=== PATIENT | male | born 1995 | race Two or more races ===

== ENCOUNTER 2025-05-14 22:52 | Emergency (ER) | payer OTHER ==
[~2025-05-14] VITALS: Ht 177.8 cm; Wt 81.6 kg
[2025-05-15] MEDS ORDERED: KETOROLAC TROMETHAMINE 60 MG VIAL IM STA (00:33)
[2025-05-15] MEDS ORDERED: KETOROLAC TROMETHAMINE 60 MG VIAL IM ONE (00:34)
[2025-05-15] MEDS ORDERED: FAMOTIDINE/PF 20 MG/2 ML VIAL IV PUSH STA (00:34)
[2025-05-15] MEDS ORDERED: DEXAMETHASONE SODIUM PHOSPHATE 4 MG/ML VIAL ONE (00:34)
[2025-05-15] MEDS ORDERED: DEXAMETHASONE SODIUM PHOSPHATE 4 MG/ML VIAL IM STA (00:34)
[2025-05-15] MEDS ORDERED: FAMOTIDINE/PF 20 MG/2 ML VIAL ONE (00:35)
[2025-05-15 01:41] LABS: BASO % 0.5 % (0.1-1.2); EOS # 0.10 (0.04-0.54); EOS % 1.3 % (0.7-7.0); LYMPH # 2.84 (1.18-3.74); LYMPH % 37.3 % (19.3-53.1); MEAN PLATELET VOLUME 10.60 fl (9.4-12.4); MONO # 0.62 (0.24-0.82); MONO % 8.1 % (4.7-12.5); NEUT # 4.00 (1.56-6.13); NEUT % 52.7 % (34.0-71.1); RED CELL DISTRIBUTION WIDTH 11.8 % (11.6-14.4)
[2025-05-15 01:52] LABS: BUN CREA RATIO 15.0 (7.0-25.0); CREATININE SERUM 1.2 mg/dL (0.70-1.30); GFR 72.09; GLUCOSE FASTING 112.0 mg/dL (65-100); OSMOLALITY SERUM 284.0 MOSM/KG (275-295)
[2025-05-15 02:36] LABS: URINE APPEARANCE Clear; URINE BILIRRUBIN Negative (NEGATIVE); URINE BLOOD Negative; URINE COLOR Yellow; URINE GLUCOSE Negative (NEGATIVE); URINE KETONE Negative (NEGATIVE); URINE LEUKOCYTE Negative; URINE NITRATE Negative; URINE PROTEIN Negative (NEGATIVE); URINE UROBILINOGEN 0.2 E.U./dl
[2025-05-15 02:47] LABS: TYPE CELLS SQUAMOUS; URINE BACTERIA 2.4 uL (0.0-1933); URINE CAST 0.00 uL (0.0-1.40); URINE EPITHELIAL CELLS 0.3 uL (0.0-38.8); URINE RBC 0.8 uL (0.0-20.8); URINE WBC 0.9 uL (0.0-23.2)
== END 2025-05-15 03:12 | disposition home or self-care (01) ==
LOC: ER 22:52
PROVIDERS: General Practice
DX: K29.60 Other gastritis without bleeding (principal)